=== PATIENT | female | born 1985 | race African-American/Black ===

== ENCOUNTER → 2017-02-21 | Outpatient (CLI) | payer OTHER ==
--- NOTE | 2017-02-21 16:04 | RAD ---
Pelvic ultrasound, 02/21/2017: History: Check IUD Transabdominal and transvaginal scans were obtained. The uterus measures 8.2 x 6.1 x 4.2 cm. There is a 1.7 cm hypoechoic nodule in the myometrium posteriorly on the right. The appearance is compatible with a uterine fibroid. An echogenic structure compatible with an IUD is present in the central uterine cavity. There is a small amount of fluid in the central uterine cavity. The overall endometrial thickness is within normal limits. A 3.2 cm simple cyst is present in the right ovary. There is a septated cyst or cyst cluster in the left ovary with the overall process measuring approximate 4.5 cm. Several small echogenic mural foci are seen. Blood flow is present in both ovaries. No free fluid is evident in the pelvis. IMPRESSION: 1. An IUD is identified in the central uterine cavity. 2. Small uterine fibroid. 3. Small small simple cyst in the right ovary. 4. Septated cyst with slight mural nodularity in the left ovary. Sonographic follow-up is suggested to exclude a neoplastic etiology.
== END | disposition home or self-care (01) ==
LOC: US 10:49
PROVIDERS: ATTEND Family Medicine
DX: D25.9 Leiomyoma of uterus, unspecified (principal); N83.201 Unspecified ovarian cyst, right side; D49.9 Neoplasm of unspecified behavior of unspecified site; Z97.5 Presence of (intrauterine) contraceptive device
CPT/HCPCS: 76830; 76856

== ENCOUNTER → 2017-10-22 | Outpatient (CLI) | payer OTHER | END | disposition home or self-care (01) | LOC: US 10:21 | DX: N83.202 Unspecified ovarian cyst, left side (principal) | CPT/HCPCS: 76830; 76856 ==

== ENCOUNTER → 2018-12-26 | Outpatient (CLI) | payer OTHER ==
--- NOTE | 2018-12-26 17:12 | RAD ---
Pelvic ultrasound, transabdominal and transvaginal: Comparison is made to previous study dated 10/22/2017. Transabdominal and transvaginal ultrasound examination of the pelvis was performed. Transabdominally, the uterus measures 13.1 x 6.1 x 5.9 cm in greatest dimensions. An IUD is present in the uterine fundus. The endometrium does not appear to be abnormally thickened. There does appear to be 2.4 x 2.2 x 2.3 cm fibroid posteriorly. No abnormality seen at the bladder. The ovaries are not optimally visualized transabdominally. Transvaginally, the left ovary measures 4.2 x 3.3 x 2.1 cm in greatest dimension and contains 2 hypodense lesions with the largest consistent with a cyst measuring 2.2 cm in greatest dimension. There appears be normal vascular flow. The right ovary measures 3.8 x 2.7 x 2.5 cm in greatest dimension and shows normal vascular flow with no focal nodules. There is a moderate amount of free fluid in the pelvis. IMPRESSION: 2 lesions consistent with probable cysts in the left ovary with the largest measuring 2.2 cm in greatest dimension. Moderate amount of free fluid in the pelvis. Electronically signed by: Akiko Genao MD (12/26/2018 5:09 PM) [id number]
== END | disposition home or self-care (01) ==
LOC: US 15:00
PROVIDERS: ATTEND Family Medicine
DX: N83.8 Other noninflammatory disorders of ovary, fallopian tube and broad ligament (principal); N83.202 Unspecified ovarian cyst, left side
CPT/HCPCS: 76830; 76856